=== PATIENT | male | born 1990 | race Caucasian/White ===

== ENCOUNTER 2016-09-12 21:31 | Emergency (ER) | payer SELFPAY ==
[2016-09-12 21:41] VITALS: TEMP 99.2; BMI 31.8
[2016-09-12 22:25] LABS: AUTOMATED BASOPHIL 0.4 % (0-2); AUTOMATED EOSINOPHIL 0.1 % (0-5); AUTOMATED LYMPH 13.7 % (17-44); AUTOMATED MONOCYTE 5.9 % (3-10); AUTOMATED NEUTROPHIL 79.9 % (45-76); MPV 7.9 fL (7.4-10.4)
[2016-09-12 22:44] LABS: BLOOD UREA NITROGEN 13 MG/DL (9-20); CALCIUM 9.4 MG/DL (8.4-10.2); CALCULATED OSMOLALITY 273 MOs/Kg (270-290); CHLORIDE 102 mEq/L (98-107); GLUCOSE 100 MG/DL (70-99); SODIUM LEVEL 142 mEq/L (137-146); TOTAL PROTEIN 8.9 G/DL (6.3-8.2)
[2016-09-12] MEDS ORDERED: LORAZEPAM 1 MG TAB PO ONE (23:32)
[2016-09-12] MEDS ORDERED: PROMETHAZINE 25 MG/ML VIAL IV ONE (23:33)
[2016-09-12] MEDS ORDERED: NS 1,000 ML IV ONE (23:33)
--- NOTE | 2016-09-12 23:35 | EDPRACDOC ---
- General Information Chief Complaint: Nausea,Vomiting,Diarrhea Stated Complaint: N/V/D Time Seen by Provider: 09/12/16 23:28 Mode Of Arrival: Car Home Medications: Home Medications Lorazepam [Ativan] 1 mg PO BID #60 tab 09/13/16 Ondansetron [Zofran Odt] 4 mg PO Q6H PRN #20 tab.rapdis 09/13/16 Allergies/Adverse Reactions: Allergies Allergy/AdvReac Type Severity Reaction Status Date / Time Sulfa (Sulfonamide Allergy Anaphylaxis Verified 09/12/16 21:36 Antibiotics) * - History of Present Illness Onset: last night HPI: PATIENT PRESENTS WITH NAUSEA, VOMITING, AND DIARRHEA FOR 24 HOURS. PATIENT NOTES HE IS UNDER A LOT OF STRESS BECAUSE HE BROKE UP WITH FIANCE. NO FEVER. NOTES PALPITATIONS. Symptoms Occured: Reports: Spontaneous Duration: Reports: Since Onset Emesis: Reports: Bilious Pain Severity: None Associated Signs and Symptoms: Reports: Nausea, Vomiting, Diarrhea. 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 negative: Chills, Fever, Loss of Appetite, Weakness Eyes: No Symptoms Reported. negative: Redness, Blurred Vision, Double Vision, Discharge, Pain, Light Sensitive, Photophobia Ears: No Symptoms Reported. negative: Pain, Hearing Loss, Drainage, Ear Pulling Throat: No Symptoms Reported. negative: Pain, Swelling Nose: No Symptoms Reported. negative: Congestion, Bleeding, Discharge, Injection, Swelling, Deformity, Ecchymosis, Tender, Abrasion, Laceration Mouth: No Symptoms Reported. negative: Pain, Drooling Respiratory: No Symptoms Reported. negative: Cough, Brassy Cough, Barky Cough, Shortness of Breath, Wheezing, Hemoptysis Cardiovascular: Palpitations. negative: Chest Pain, Cyanosis, Edema, Orthopnea , PND, Syncope, Skin Mottling Gastrointestinal: Diarrhea, Nausea, Vomiting. negative: Constipation, Formula Intolerance, Melena, Pain Genitourinary: No Symptoms Reported. negative: Dysuria, Hematuria, Frequency, Discharge, Bleeding, Testicular Pain, Neurological: No Symptoms Reported. negative: Headache, Dizziness, Seizure, Numbness, Weakness, Speech Difficulty, Gait Difficulty Musculoskeletal: No Symptoms Reported. negative: Neck, Chestwall, Ribs, Back, Shoulder, Arm, Elbow, Forearm, Wrist, Hand, Pelvis, Hip, Femur, Knee, Leg, Ankle , Foot Integumentary: No Symptoms Reported. negative: Itching, Rash, Bruising, Wound Allergic/Immunologic: No Symptoms Reported. negative: Hives, Itching Hematologic: No Symptoms Reported. negative: Lymphadenopathy, Easy Bruising, Easy Bleeding Endocrine: No Symptoms Reported. negative: Weight Gain, Weight Loss Psychiatric: Depression. negative: Anxiety, Hallucinations, Insomnia, Suicidal - Physical Exam Constitutional: Alert (Awake) Oriented to: Time, Person, Place Last recorded Vital Signs: Last Vital Signs Temp 99.2 F 09/12/16 21:36 Pulse 119 09/12/16 21:36 Resp 18 09/12/16 21:36 BP 172/98 09/12/16 21:36 Pulse Ox 99 09/12/16 21:36 Oxygen Pulse Oxygen Saturation 99 O2 Device Oxygen Flow Rate Fraction of Inspired Oxygen ( FIO2) - HEENT Head: Normal ( normocephalic) Eye Exam: Normal (PERRL, EOMI, Sclera white) Oropharynx: Normal (Pharynx:Moist without exudate,Gums-no swelling) Tympanic Membrane: Normal ENT EAC: Normal TMJ: Normal Nose: No Symptoms Reported (septum midline) Neck: Normal (FROM, trachea at midline) - Respiratory/Cardiovascular Respiratory: Normal - CTA (BBS clear to auscultation without adventitious sounds ) Cardiovascular: Normal (RRR without murmur, gallop or rub) - GI Auscultation: Normal (NABS) Palpation: Normal (Soft,No rebound or guarding, non distended) Tenderness: Non tender Diallo's Sign: Negative - Bladder: Normal - Musculoskeletal Back: Normal (Non-Tender) Extremities: Normal (Normal tone, Pulses 2+ No cyanosis or edema, FROM) - Integumentary Skin: Normal, Warm, Dry Lymphatics: Normal (no adenopathy) - Neurologic Memory Impaired: Normal Motor Function: Normal (Normal tone, Pulses 2+ No cyanosis or edema, FROM) Cranial Nerve: Normal (CN II-X11 intact sensation, strength 5/5) Cerebellar: Normal Mood Description: Depressed, Flat Thought: Coherent Perception: Normal - Re-evaluation Re-evaluation 1 Re-evaluation Time: 00:19 (PATIENT FEELS SIGNIFICANTLY IMPROVED. NOTES HE MARTIN ELEVATED LIVER ENZYMES DUE TO A FATTY LIVER. FOLLOWING THIS WITH PCP) - Results 09/12/16 22:15 09/12/16 22:15 WBC 11.6 xk/uL (3.8-10.8) H 09/12/16 22:15 RBC 5.16 xM/uL (4.70-6.10) 09/12/16 22:15 Hgb 15.4 g/dL (14.0-18.0) 09/12/16 22:15 Hct 46.3 % (42-52) 09/12/16 22:15 MCV 90 fL (80-94) 09/12/16 22:15 MCH 29.9 pg (27-32) 09/12/16 22:15 MCHC 33.3 g/dl (33-36) 09/12/16 22:15 RDW 14.0 % (11.5-14.5) 09/12/16 22:15 Plt Count 325 xk/uL (130-400) 09/12/16 22:15 MPV 7.9 fL (7.4-10.4) 09/12/16 22:15 Neut % (Auto) 79.9 % (45-76) H 09/12/16 22:15 Lymph % (Auto) 13.7 % (17-44) L 09/12/16 22:15 [place] % (Auto) 5.9 % (3-10) 09/12/16 22:15 Eos % (Auto) 0.1 % (0-5) 09/12/16 22:15 Baso % (Auto) 0.4 % (0-2) 09/12/16 22:15 Absolute Neuts (auto) 9.16 xk/uL (1.7-8.2) H 09/12/16 22:15 Absolute Lymphs (auto) 1.51 xk/uL (0.65-4.75) 09/12/16 22:15 Sodium 142 mEq/L (137-146) 09/12/16 22:15 Potassium 4.0 mEq/L (3.5-5.1) 09/12/16 22:15 Chloride 102 mEq/L (98-107) 09/12/16 22:15 Carbon Dioxide 25 mMOL/L (22-33) 09/12/16 22:15 Anion Gap 19 mEq/L (8-16) H 09/12/16 22:15 BUN 13 MG/DL (9-20) 09/12/16 22:15 Creatinine 0.90 MG/DL (0.66-1.25) 09/12/16 22:15 Estimated GFR (MDRD) > 60 mL/min (>=60) 09/12/16 22:15 Glucose 100 MG/DL (70-99) H 09/12/16 22:15 Calculated Osmolality 273 MOs/Kg (270-290) 09/12/16 22:15 Calcium 9.4 MG/DL (8.4-10.2) 09/12/16 22:15 Total Bilirubin 2.1 MG/DL (0.2-1.3) H 09/12/16 22:15 AST 201 IU/L (17-59) H 09/12/16 22:15 ALT 71 IU/L (21-72) 09/12/16 22:15 Alkaline Phosphatase 74 IU/L (38-126) 09/12/16 22:15 Total Protein 8.9 G/DL (6.3-8.2) H 09/12/16 22:15 Albumin 4.9 G/DL (3.5-5.0) 09/12/16 22:15 Amylase 137 IU/L (30-110) H 09/12/16 22:15 Lipase 68 U/L (23-300) 09/12/16 22:15 Lab Results 09/12/16 09/12/16 22:15 22:15 WBC 11.6 H RBC 5.16 Hgb 15.4 Hct 46.3 MCV 90 MCH 29.9 MCHC 33.3 RDW 14.0 Plt Count 325 MPV 7.9 Neut % (Auto) 79.9 H Lymph % (Auto) 13.7 L [place] % (Auto) 5.9 Eos % (Auto) 0.1 Baso % (Auto) 0.4 Absolute Neuts (auto) 9.16 H Absolute Lymphs (auto) 1.51 Sodium 142 Potassium 4.0 Chloride 102 Carbon Dioxide 25 Anion Gap 19 H BUN 13 Creatinine 0.90 Estimated GFR (MDRD) > 60 Glucose 100 H Calculated Osmolality 273 Calcium 9.4 Total Bilirubin 2.1 H AST 201 H ALT 71 Alkaline Phosphatase 74 Total Protein 8.9 H Albumin 4.9 Amylase 137 H Lipase 68 - EKG EKG #1 EKG Time: 23:47 -: Yes EKG interpreted by me Rate: bpm: 99 [place]: Normal Rhythm: NSR Block: IVCD Hypertrophy: None ST: Normal Decision Time to Discharge: 00:19 - Departure Yes I personally saw and evaluated the patient. Disposition: Home Condition: Good Final Diagnosis: Nausea and vomiting, Anxiety, Palpitations Instructions: Acute Nausea and Vomiting (ED) Education/Counseling Given To: Patient Education/Counseling Given Regarding: Diagnosis, Treatment, Prognosis, Follow Up Referrals: Nazario Hyman MD [Primary Care Provider] - One Week Prescriptions: Lorazepam [Ativan] 1 mg PO BID #60 tab Ondansetron [Zofran Odt] 4 mg PO Q6H PRN #20 tab.rapdis PRN Reason: Nausea/Vomiting
[2016-09-12 23:54] LABS: LEUKOCYTES/URINE NEG (NEGATIVE); NITRITE/URINE NEG (NEGATIVE); URINE OCCULT BLOOD NEG (NEG/TRACE)
[2016-09-13] MEDS ORDERED: FOLIC ACID 1 MG TAB PO ONE (00:28)
[2016-09-13] MEDS ORDERED: THIAMINE 100 MG TAB PO ONE (00:28)
[2016-09-13 01:34] VITALS: BP 133/71; PULSE 81
== END 2016-09-13 01:32 | disposition home or self-care (01) ==
LOC: ED 21:31
DX: R11.2 Nausea with vomiting, unspecified (principal); F41.9 Anxiety disorder, unspecified; R00.2 Palpitations
CPT/HCPCS: 36415; 80053; 80074; 81001; 82150; 83690; 85025; 93005; 96361; 96374; 99284; J2550; J3490

== ENCOUNTER 2016-09-19 19:48 | Emergency (ER) | payer SELFPAY ==
[2016-09-19 20:15] VITALS: TEMP 98.9; BMI 30.3
[2016-09-19 20:23] LABS: ALL NEG? NO
[2016-09-19 20:28] LABS: AUTOMATED BASOPHIL 0.7 % (0-2); AUTOMATED EOSINOPHIL 0.7 % (0-5); AUTOMATED LYMPH 19.1 % (17-44); AUTOMATED MONOCYTE 7.5 % (3-10); MPV 8.1 fL (7.4-10.4)
[2016-09-19 20:38] LABS: LEUKOCYTES/URINE NEG (NEGATIVE); NITRITE/URINE NEG (NEGATIVE); RBC/URINE 0-2 (0-2); URINE OCCULT BLOOD NEG (NEG/TRACE)
[2016-09-19 20:41] LABS: BLOOD UREA NITROGEN 10 MG/DL (9-20); CALCIUM 9.4 MG/DL (8.4-10.2); CALCULATED OSMOLALITY 274 MOs/Kg (270-290); CHLORIDE 102 mEq/L (98-107); ETOH-MGDL < 10 mg/dL; GLUCOSE 92 MG/DL (70-99); SODIUM LEVEL 143 mEq/L (137-146)
[2016-09-19 21:00] LABS: MDMA* NEG (NEGATIVE); METHAMPHETAMINES NEG (NEGATIVE); OXYCODONE NEG (NEGATIVE)
--- NOTE | 2016-09-20 01:36 | EDPRACDOC ---
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 PT STATES HE HAS HAD DEPRESSION SINCE MIDDLE SCHOOL A CHILD AND HAS HAD VAGUE INTERMITTENT SUICIDAL THOUGHTS THAT WOULD COME AND GO HAS NEVER HAD A PLAN AND STILL DENIES HAVING PLAN AT THIS TIME. PT IS LAUGHING AND CUTTING UP WITH MOTHER AND JOKING WITH ME WHILE INTERVIEWING THEM. PT ALSO STATES THAT HIM AND HIS SIGNIFICANT OTHER HAD JUST RECENTLY HAD A FALLING OUT AND HAS BEEN NOT BEEN DEALING WITH THAT VERY WELL. Reason for Seeking Treatment: Self-referral Presents With: Reports: Depression, Unclear Thinking, Suicidal Ideation Expresses: Reports: None Suicidal Plan: Reports: None Stressors: Reports: Relationships Relevant History: Reports: Depression, Anxiety Medication Compliance: No (PT STATES INÉS STARTED HIM ON LEXAPRO BUT HE HAS NOT STARTED IT DUE TO BEING SCARED OF THE MEDICATION.) Able to Care for Self: Yes Able to Control Self: Yes Associated Signs and Symptoms: Reports: Anxiety, Depression ED Past Medical History - History Reviewed Yes Nurses notes reviewed and agree except as marked Travel Outside of [place] in the Last 3 Months?: No - Patient Medical History Psychological History: Reports: Depression, Anxiety. Denies: Substance Use Disorder Systemic History: Denies: Cancer - Social Medical History Smoking Status: Never smoker Social History: Denies: Substance Use Disorder ETOH: None Substance Abuse: None Lives With: Other Lives In: Home EDM Review of Systems - Review of Systems ROS Negative Except as Marked: Yes All systems reviewed and were negative except as marked Constitutional: No Symptoms Reported. negative: Fever, Chills, Weakness, Fatigue, Loss of Appetite Eyes: No Symptoms Reported. negative: Redness, Blurred Vision, Double Vision, Discharge, Pain, Light Sensitive, Photophobia Ears: No Symptoms Reported. negative: Pain, Hearing Loss, Drainage, Ear Pulling Throat: No Symptoms Reported. negative: Pain, Swelling Nose: No Symptoms Reported. negative: Congestion, Bleeding, Discharge, Injection, Swelling, Deformity, Ecchymosis, Tender, Abrasion, Laceration Mouth: No Symptoms Reported. negative: Pain, Drooling Respiratory: No Symptoms Reported. negative: Cough, Brassy Cough, Barky Cough, Shortness of Breath, Wheezing, Hemoptysis Cardiovascular: No Symptoms Reported. negative: Chest Pain, Palpitations, Syncope, Edema, Orthopnea, PND, Skin Mottling, Cyanosis Gastrointestinal: No Symptoms Reported. negative: Pain, Constipation, Nausea, Vomiting, Diarrhea, Melena, Formula Intolerance Genitourinary: No Symptoms Reported. negative: Dysuria, Hematuria, Frequency, Discharge, Bleeding, Testicular Pain, Neurological: No Symptoms Reported. negative: Headache, Dizziness, Seizure, Numbness, Weakness, Speech Difficulty, Gait Difficulty Musculoskeletal: No Symptoms Reported. negative: Neck, Chestwall, Ribs, Back, Shoulder, Arm, Elbow, Forearm, Wrist, Hand, Pelvis, Hip, Femur, Knee, Leg, Ankle , Foot Integumentary: No Symptoms Reported. negative: Itching, Rash, Bruising, Wound Allergic/Immunologic: No Symptoms Reported. negative: Hives, Itching Hematologic: No Symptoms Reported. negative: Lymphadenopathy, Easy Bruising, Easy Bleeding Endocrine: No Symptoms Reported. negative: Weight Gain, Weight Loss Psychiatric: Anxiety, Depression, Suicidal (INTERMITTENT BUT HAS BEEN THIS WAY FOR YEARS.). negative: Hallucinations, Insomnia - Physical Exam Constitutional: No apparent distress, Alert (Awake) Oriented to: Time, Person, Place Last recorded Vital Signs: Last Vital Signs Temp 98.9 F 09/19/16 20:11 Pulse 91 09/19/16 23:29 Resp 20 09/19/16 23:29 BP 121/69 09/19/16 23:29 Pulse Ox 100 09/19/16 23:29 Oxygen Pulse Oxygen Saturation 100 O2 Device Room Air Oxygen Flow Rate Fraction of Inspired Oxygen ( FIO2) - HEENT Head: Normal ( normocephalic) Eye Exam: Normal (PERRL, EOMI, Sclera white) Oropharynx: Normal (Pharynx:Moist without exudate,Gums-no swelling) Tympanic Membrane: Normal ENT EAC: Normal TMJ: Normal Nose: No Symptoms Reported (septum midline) Neck: Normal (FROM, trachea at midline) - Respiratory/Cardiovascular Respiratory: Normal - CTA (BBS clear to auscultation without adventitious sounds ) Cardiovascular: Normal (RRR without murmur, gallop or rub) - GI Auscultation: Normal (NABS) Palpation: Normal (Soft,No rebound or guarding, non distended) Tenderness: Non tender Diallo's Sign: Negative - Bladder: Normal - Musculoskeletal Back: Normal (Non-Tender) Extremities: Normal (Normal tone, Pulses 2+ No cyanosis or edema, FROM) - Integumentary Skin: Normal, Warm, Dry Lymphatics: Normal (no adenopathy) - Neurologic Memory Impaired: Normal Motor Function: Normal (Normal tone, Pulses 2+ No cyanosis or edema, FROM) Cranial Nerve: Normal (CN II-X11 intact sensation, strength 5/5) Cerebellar: Normal Mood Description: Normal Perception: Normal Initial Evaluation Apperance: Stated Age Attitude: Cooperative Mood: Euthymic Affect: Congruent w/ mood Insight: Impaired Judgement: Impaired Memory Description: Intact Depressive Symptoms: Reports: Sadness Anxiety Symptoms: Reports: Excessive Worries Delusion Description: Reports: Not Present Hallucination Type: Reports: None Hallucinations Severity: Reports: None Hallucinations affecting more than one sensory system: No Recommend /or Refer: Outpatient Therapy - Differential Diagnosis Anxiety, Depression, Panic disorder, Suicidal - Results 09/19/16 20:12 09/19/16 20:12 WBC 8.7 xk/uL (3.8-10.8) 09/19/16 20:12 RBC 5.25 xM/uL (4.70-6.10) 09/19/16 20:12 Hgb 16.0 g/dL (14.0-18.0) 09/19/16 20:12 Hct 47.5 % (42-52) 09/19/16 20:12 MCV 90 fL (80-94) 09/19/16 20:12 MCH 30.4 pg (27-32) 09/19/16 20:12 MCHC 33.6 g/dl (33-36) 09/19/16 20:12 RDW 14.3 % (11.5-14.5) 09/19/16 20:12 Plt Count 301 xk/uL (130-400) 09/19/16 20:12 MPV 8.1 fL (7.4-10.4) 09/19/16 20:12 Neut % (Auto) 72.0 % (45-76) 09/19/16 20:12 Lymph % (Auto) 19.1 % (17-44) 09/19/16 20:12 [place] % (Auto) 7.5 % (3-10) 09/19/16 20:12 Eos % (Auto) 0.7 % (0-5) 09/19/16 20:12 Baso % (Auto) 0.7 % (0-2) 09/19/16 20:12 Absolute Neuts (auto) 6.26 xk/uL (1.7-8.2) 09/19/16 20:12 Absolute Lymphs (auto) 1.65 xk/uL (0.65-4.75) 09/19/16 20:12 Sodium 143 mEq/L (137-146) 09/19/16 20:12 Potassium 3.6 mEq/L (3.5-5.1) 09/19/16 20:12 Chloride 102 mEq/L (98-107) 09/19/16 20:12 Carbon Dioxide 26 mMOL/L (22-33) 09/19/16 20:12 Anion Gap 19 mEq/L (8-16) H 09/19/16 20:12 BUN 10 MG/DL (9-20) 09/19/16 20:12 Creatinine 1.00 MG/DL (0.66-1.25) 09/19/16 20:12 Estimated GFR (MDRD) > 60 mL/min (>=60) 09/19/16 20:12 Glucose 92 MG/DL (70-99) 09/19/16 20:12 Calculated Osmolality 274 MOs/Kg (270-290) 09/19/16 20:12 Calcium 9.4 MG/DL (8.4-10.2) 09/19/16 20:12 Total Bilirubin 2.5 MG/DL (0.2-1.3) H 09/19/16 20:12 AST 141 IU/L (17-59) H 09/19/16 20:12 ALT 56 IU/L (21-72) 09/19/16 20:12 Alkaline Phosphatase 65 IU/L (38-126) 09/19/16 20:12 Total Protein 9.0 G/DL (6.3-8.2) H 09/19/16 20:12 Albumin 4.7 G/DL (3.5-5.0) 09/19/16 20:12 Urine Color Yellow 09/19/16 20:15 Urine Clarity Clear 09/19/16 20:15 Urine pH 6.0 (5.0-8.0) 09/19/16 20:15 Ur Specific [place] 1.020 (1.003-1.035) 09/19/16 20:15 Urine Protein 1+ (NEG/TRACE) H 09/19/16 20:15 Urine Glucose (UA) Neg (NEGATIVE) 09/19/16 20:15 Urine Ketones 2+ (NEGATIVE) H 09/19/16 20:15 Urine Occult Blood Neg (NEG/TRACE) 09/19/16 20:15 Urine Nitrite Neg (NEGATIVE) 09/19/16 20:15 Urine Bilirubin Neg (NEGATIVE) 09/19/16 20:15 Urine Urobilinogen 2 MG/DL (0-1) H 09/19/16 20:15 Ur Leukocyte Esterase Neg (NEGATIVE) 09/19/16 20:15 Urine RBC 0-2 (0-2) 09/19/16 20:15 Ur Epithelial Cells 2+ 09/19/16 20:15 Urine Mucus Large (NEG/OCC) 09/19/16 20:15 Urine Opiates Screen Neg (NEGATIVE) 09/19/16 20:15 Ur Oxycodone Screen Neg (NEGATIVE) 09/19/16 20:15 Urine Methadone Screen Neg (NEGATIVE) 09/19/16 20:15 Ur Barbiturates Screen Neg (NEGATIVE) 09/19/16 20:15 Ur Tricyclics Screen Neg (NEGATIVE) 09/19/16 20:15 Ur Phencyclidine Scrn Neg (NEGATIVE) 09/19/16 20:15 Ur Amphetamines Screen Neg (NEGATIVE) 09/19/16 20:15 U Methamphetamines Scrn Neg (NEGATIVE) 09/19/16 20:15 Urine MDMA Screen Neg (NEGATIVE) 09/19/16 20:15 U Benzodiazepines Scrn *positive* (NEGATIVE) H 09/19/16 20:15 Urine Cocaine Screen Neg (NEGATIVE) 09/19/16 20:15 Ur THC Screen Neg (NEGATIVE) 09/19/16 20:15 Plasma/Serum Ethyl Alc % (<0.01) 09/19/16 20:12 Lab Results 09/19/16 09/19/16 09/19/16 20:15 20:15 20:12 WBC 8.7 RBC 5.25 Hgb 16.0 Hct 47.5 MCV 90 MCH 30.4 MCHC 33.6 RDW 14.3 Plt Count 301 MPV 8.1 Neut % (Auto) 72.0 Lymph % (Auto) 19.1 [place] % (Auto) 7.5 Eos % (Auto) 0.7 Baso % (Auto) 0.7 Absolute Neuts (auto) 6.26 Absolute Lymphs (auto) 1.65 Sodium Potassium Chloride Carbon Dioxide Anion Gap BUN Creatinine Estimated GFR (MDRD) Glucose Calculated Osmolality Calcium Total Bilirubin AST ALT Alkaline Phosphatase Total Protein Albumin Urine Color Yellow Urine Clarity Clear Urine pH 6.0 Ur Specific [place] 1.020 Urine Protein 1+ H Urine Glucose (UA) Neg Urine Ketones 2+ H Urine Occult Blood Neg Urine Nitrite Neg Urine Bilirubin Neg Urine Urobilinogen 2 H Ur Leukocyte Esterase Neg Urine RBC 0-2 Ur Epithelial Cells 2+ Urine Mucus Large Urine Opiates Screen Neg Ur Oxycodone Screen Neg Urine Methadone Screen Neg Ur Barbiturates Screen Neg Ur Tricyclics Screen Neg Ur Phencyclidine Scrn Neg Ur Amphetamines Screen Neg U Methamphetamines Scrn Neg Urine MDMA Screen Neg U Benzodiazepines Scrn *positive* H Urine Cocaine Screen Neg Ur THC Screen Neg Plasma/Serum Ethyl Alc 09/19/16 20:12 WBC RBC Hgb Hct MCV MCH MCHC RDW Plt Count MPV Neut % (Auto) Lymph % (Auto) [place] % (Auto) Eos % (Auto) Baso % (Auto) Absolute Neuts (auto) Absolute Lymphs (auto) Sodium 143 Potassium 3.6 Chloride 102 Carbon Dioxide 26 Anion Gap 19 H BUN 10 Creatinine 1.00 Estimated GFR (MDRD) > 60 Glucose 92 Calculated Osmolality 274 Calcium 9.4 Total Bilirubin 2.5 H AST 141 H ALT 56 Alkaline Phosphatase 65 Total Protein 9.0 H Albumin 4.7 Urine Color Urine Clarity Urine pH Ur Specific [place] Urine Protein Urine Glucose (UA) Urine Ketones Urine Occult Blood Urine Nitrite Urine Bilirubin Urine Urobilinogen Ur Leukocyte Esterase Urine RBC Ur Epithelial Cells Urine Mucus Urine Opiates Screen Ur Oxycodone Screen Urine Methadone Screen Ur Barbiturates Screen Ur Tricyclics Screen Ur Phencyclidine Scrn Ur Amphetamines Screen U Methamphetamines Scrn Urine MDMA Screen U Benzodiazepines Scrn Urine Cocaine Screen Ur THC Screen Plasma/Serum Ethyl Alc - Additional Information Additional Information: PT SEEN AND EVALUATED BY [facility] AND THEY STATE PT DOES NOT MEET IVC CRITERIA AND MAY FOLLOW UP OUT PATIENT SERVICES WITH [facility]. Decision Time to Discharge: 02:16 - Departure Disposition: Home Condition: Stable Final Diagnosis: Moderate major depression, single episode, Suicidal ideations Instructions: Depression (GEN) Education/Counseling Given To: Patient Education/Counseling Given Regarding: Diagnosis, Treatment, Prognosis, Follow Up Referrals: Nazario Hyman MD [Primary Care Provider] - One Week Prescriptions: No Action Lorazepam [Ativan] 1 mg PO BID #60 tab Meloxicam Unknown Dose 1 tab PO DAILY Dicyclomine HCl [Bentyl] 20 mg PO Q6H Prevacid Unknown Dose 1 tab PO DAILY Additional Instructions: FOLLOW RECOMMENDATIONS BY [facility]. RETURN FOR WORSE OR DIFFERENT SYMPTOMS.
[2016-09-20] MEDS ORDERED: LORAZEPAM 1 MG TAB PO PRN (01:43)
[2016-09-20] MEDS ORDERED: ACETAMINOPHEN 325 MG/TAB TABLET PO PRN (01:43)
[2016-09-20] MEDS ORDERED: ONDANSETRON HCL 4 MG ODT TAB PO PRN (01:43)
[2016-09-20] MEDS ORDERED: IBUPROFEN 400 MG TAB PO PRN (01:43)
[2016-09-20] MEDS ORDERED: MAGNESIUM HYDROXIDE 30 ML BOTTLE PO PRN (01:43)
[2016-09-20] MEDS ORDERED: GUAIFENESIN 200 MG/10 ML UDC PO PRN (01:43)
[2016-09-20 02:44] VITALS: BP 138/81; PULSE 100
== END 2016-09-20 02:42 | disposition home or self-care (01) ==
LOC: ED 19:48 → EDMC 09-20 02:42
DX: F32.1 Major depressive disorder, single episode, moderate (principal)
CPT/HCPCS: 36415; 80053; 80307; 81001; 85025; 86592; 99284